=== PATIENT | female | born 1960 | race Hispanic/Latino ===

== ENCOUNTER 2018-05-09 15:11 | Emergency (ER) | payer OTHER ==
[2018-05-09 15:16] VITALS: BP 179/109; PULSE 108; RESP 16; TEMP 98.4; O2SAT 99
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
[2018-05-09] MEDS ORDERED: Tdap Vaccine 0.5 ml Vial (10-64 yrs) IM ONE ×2 (15:25→15:51)
== END 2018-05-09 16:20 | disposition home or self-care (01) ==
LOC: H.ER 15:11
DX: S20.319A Abrasion of unspecified front wall of thorax, initial encounter (principal); Y04.0XXA Assault by unarmed brawl or fight, initial encounter; Y99.0 Civilian activity done for income or pay